=== PATIENT | female | born 1995 | race Caucasian/White ===

== ENCOUNTER 2018-05-12 00:05 | Emergency (ER) | payer SELFPAY ==
[2018-05-12 01:13] LABS: Urine Blood 3+ (NEG); Urine Glucose NEGATIVE (NEG); Urine Protein 1+ (NEG); Urine Specific Gravity 1.015 (1.005-1.030); Urine pH 7.5 (5.0-7.0)
[2018-05-12 01:23] LABS: Urine Bacteria <20 /HPF (<20); Urine Culture Reflex Order NOT NEEDED; Urine RBC >50 /HPF (NONE SEEN)
[2018-05-12] MEDS ORDERED: KETOROLAC 30 MG/ML INJ ONE (02:24)
--- NOTE | 2018-05-12 03:27 | EDPHYS ---
Physician Documentation [facility] Name: Francy Macdonald Age: 22 yrs Sex: Female : 1995 Arrival Date: 05/12/2018 Time: 00:08 Bed 20 Private MD: ED Physician Jose Cardenas HPI: 05/12 00:52 This 22 yrs old Female presents to ER via Ambulatory with complaints of snw Abdominal Pain, Back Pain. 00:52 The patient presents with abdominal distention that is diffuse. Onset: The snw symptoms/episode began/occurred suddenly. The symptoms do not radiate. Associated signs and symptoms: Pertinent positives: hematuria. The symptoms are described as constant, crampy. Severity of pain: At its worst the pain was moderate. The patient has not experienced similar symptoms in the past. It is unknown whether or not the patient has recently seen a physician. 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 - Social history:: Smoking status: Patient uses tobacco products, smokes one-half pack cigarettes per day, Patient uses street drugs, marijuana. - Ebola Screening: : Patient negative for fever greater than or equal to 101.5 degrees Fahrenheit, and additional compatible Ebola Virus Disease symptoms Patient denies exposure to infectious person Patient denies travel to an Ebola-affected area in the 21 days before illness onset. ROS: 00:54 Constitutional: Negative for fever, chills, and weight loss, Eyes: Negative for injury, snw pain, redness, and discharge, ENT: Negative for injury, pain, and discharge, Neck: Negative for injury, pain, and swelling, Cardiovascular: Negative for chest pain, palpitations, and edema, Respiratory: Negative for shortness of breath, cough, wheezing, and pleuritic chest pain, Abdomen/GI: Negative for abdominal pain, nausea, vomiting, diarrhea, and constipation, MS/Extremity: Negative for injury and deformity, Skin: Negative for injury, rash, and discoloration, Neuro: Negative for headache, weakness, numbness, tingling, and seizure. 00:54 Back: Positive for flank pain, on the left. 00:54 : Positive for hematuria. Exam: 00:50 Constitutional: This is a well developed, well nourished patient who is awake, alert, snw and in no acute distress. Head/Face: Normocephalic, atraumatic. Eyes: Pupils equal round and reactive to light, extra-ocular motions intact. Lids and lashes normal. Conjunctiva and sclera are non-icteric and not injected. Cornea within normal limits. Periorbital areas with no swelling, redness, or edema. ENT: Nares patent. No nasal discharge, no septal abnormalities noted. Tympanic membranes are normal and external auditory canals are clear. Oropharynx with no redness, swelling, or masses, exudates, or evidence of obstruction, uvula midline. Mucous membranes moist. Neck: Trachea midline, no thyromegaly or masses palpated, and no cervical lymphadenopathy. Supple, full range of motion without nuchal rigidity, or vertebral point tenderness. No Meningismus. Chest/axilla: Normal chest wall appearance and motion. Nontender with no deformity. No lesions are appreciated. Cardiovascular: Regular rate and rhythm with a normal S1 and S2. No gallops, murmurs, or rubs. Normal PMI, no JVD. No pulse deficits. Respiratory: Lungs have equal breath sounds bilaterally, clear to auscultation and percussion. No rales, rhonchi or wheezes noted. No increased work of breathing, no retractions or nasal flaring. Abdomen/GI: Soft, non-tender, with normal bowel sounds. No distension or tympany. No guarding or rebound. No evidence of tenderness throughout. Back: No spinal tenderness. No costovertebral tenderness. Full range of motion. Skin: Warm, dry with normal turgor. Normal color with no rashes, no lesions, and no evidence of cellulitis. MS/ Extremity: Pulses equal, no cyanosis. Neurovascular intact. Full, normal range of motion. Neuro: Awake and alert, GCS 15, oriented to person, place, time, and situation. Cranial nerves II-XII grossly intact. Motor strength 5/5 in all extremities. Sensory grossly intact. Cerebellar exam normal. Normal gait. Vital Signs: 00:19 Weight 72.57 kg; rv 00:24 BP 131 / 69; Pulse 79; Resp 19 S; Temp 98.4(O); Pulse Ox 100% on R/A; cc3 01:00 BP 132 / 82; Pulse 74; Resp 17 S; Pulse Ox 99% on R/A; cc3 02:15 BP 122 / 78; Pulse 77; Resp 18 S; Pulse Ox 98% on R/A; cc3 03:30 BP 124 / 77; Pulse 75; Resp 17 S; Pulse Ox 98% on R/A; cc3 MDM: 00:20 Patient medically screened. snw 03:24 Data reviewed: vital signs, nurses notes. Data interpreted: Pulse oximetry: on room air snw is 98 %. Interpretation: normal. Counseling: I had a detailed discussion with the patient and/or guardian regarding: the historical points, exam findings, and any diagnostic results supporting the discharge/admit diagnosis, lab results, radiology results, the need for outpatient follow up, to return to the emergency department if symptoms worsen or persist or if there are any questions or concerns that arise at home. Special discussion: Based on the history and exam findings, there is no indication for further emergent testing or inpatient evaluation. I discussed with the patient/guardian the need to see the primary care provider for further evaluation of the symptoms. I discussed with the patient/guardian the need to see the urologist for further evaluation of the symptoms. 05/12 00:21 Order name: Urine Culture [facility] 05/12 00:21 Order name: Urine Microscopic Only [facility] 05/12 01:05 Order name: Urine Dipstick--Ancillary (enter results) 05/12 01:05 Order name: Urine --Ancillary (enter results) 05/12 01:13 Order name: Urine --Ancillary; Complete Time: [facility] 05/12 01:13 Order name: Urine Dipstick-Ancillary; Complete Time: [facility] 05/12 00:21 Order name: Urine Test (obtain specimen); Complete Time: : [facility] 05/12 00:21 Order name: Urine Dipstick-Ancillary (obtain specimen); Complete Time: 01: [facility] 05/12 01:07 Order name: CT Stone Protocol [facility] 05/12 01:23 Order name: Urine Microscopic Only; Complete Time: EDMS Administered Medications: 02:15 Drug: TORadol 60 mg Route: IM; Site: left gluteus; cc3 03:01 Follow up: Response: No adverse reaction; Pain is decreased cc3 Disposition: 06:40 Co-signature as Attending Physician, Jose Cardenas MD. rn Disposition: 05/12/18 03:27 Discharged to Home. Impression: Nonobstructing renal pelvis calcification, Hematuria. - Condition is Stable. - Discharge Instructions: Hematuria, Adult, Kidney Stones, Renal Colic, Dietary Guidelines to Help Prevent Kidney Stones, Rehydration, Adult. - Prescriptions for Diclofenac Sodium 75 mg Oral Tablet Sustained Release - take 1 tablet by ORAL route 2 times per day; 30 tablet. - Work release form, Medication Reconciliation Form, Thank You Letter, Antibiotic Education, Prescription Opioid Use form. - Follow up: Barbara Sepulveda MD; When: 2 - 3 days; Reason: Recheck today's complaints, Continuance of care. Follow up: Private Physician; When: 2 - 3 days; Reason: Recheck today's complaints, Continuance of care, Re-evaluation by your physician. Signatures: Dispatcher [employer] EDMS Erendira Berry, ANCHORER-C ANCHORER-Csnw Jose Cardenas MD MD rn Vicente, Ronaldo, RN RN rv Cordel, Charlene cc3 Corrections: (The following items were deleted from the chart) 03:45 03:27 05/12/2018 03:27 Discharged to Home. Impression: Nonobstructing renal pelvis cc3 calcification; Hematuria. Condition is Stable. Forms are Medication Reconciliation Form, Thank You Letter, Antibiotic Education, Prescription Opioid Use. Follow up: Barbara Sepulveda; When: 2 - 3 days; Reason: Recheck today's complaints, Continuance of care. Follow up: Private Physician; When: 2 - 3 days; Reason: Recheck today's complaints, Continuance of care, Re-evaluation by your physician. snw
--- NOTE | 2018-05-12 03:27 | ER ---
Nurse's Notes [facility] Name: Francy Macdonald Age: 22 yrs Sex: Female : 1995 Arrival Date: 05/12/2018 Time: 00:08 Bed 20 Private MD: Diagnosis: Nonobstructing renal pelvis calcification;Hematuria Presentation: 05/12 00:17 Presenting complaint: Patient states: WOKE UP YESTERDAY IN EXCRUCIATING PAIN IN LOWER rv ABDOMEN. NOTED BLOODY URINE. WENT BACK TO BED. DID NOT GET BETTER. Transition of care: patient was not received from another setting of care. Onset of symptoms was May 11, 2018 at 05:00. Risk Assessment: Do you want to hurt yourself or someone else? Patient reports no desire to harm self or others. Initial Sepsis Screen: Does the patient meet any 2 criteria? No. Patient's initial sepsis screen is negative. Does the patient have a suspected source of infection? No. Patient's initial sepsis screen is negative. Care prior to arrival: None. 00:17 Method Of Arrival: Ambulatory rv 00:17 Acuity: FRANCIS 3 rv Triage Assessment: 00:19 General: Appears in no apparent distress. comfortable, Behavior is calm, cooperative. rv Pain: Complains of pain in abdomen Pain currently is 5 out of 10 on a pain scale. EENT: No signs and/or symptoms were reported regarding the EENT system. Neuro: Level of Consciousness is awake, alert, obeys commands, Oriented to person, place, time, situation. Cardiovascular: Capillary refill < 3 seconds. Respiratory: Airway is patent. GI: Abdomen is round. : No signs and/or symptoms were reported regarding the genitourinary system. Derm: Skin is intact. Musculoskeletal: No signs and/or symptoms reported regarding the musculoskeletal system. 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 - Social history:: Smoking status: Patient uses tobacco products, smokes one-half pack cigarettes per day, Patient uses street drugs, marijuana. - Ebola Screening: : Patient negative for fever greater than or equal to 101.5 degrees Fahrenheit, and additional compatible Ebola Virus Disease symptoms Patient denies exposure to infectious person Patient denies travel to an Ebola-affected area in the 21 days before illness onset. Screenin:20 Abuse screen: Denies threats or abuse. Denies injuries from another. Nutritional rv screening: No deficits noted. Tuberculosis screening: No symptoms or risk factors identified. Fall Risk None identified. Assessment: 00:20 GI: Bowel sounds present X 4 quads. Abd is soft and non tender X 4 quads. rv 01:18 Reassessment: Patient appears in no apparent distress at this time. Patient and/or cc3 family updated on plan of care and expected duration. Pain level reassessed. Patient is alert, oriented x 3, equal unlabored respirations, skin warm/dry/pink. 02:15 Reassessment: Patient appears in no apparent distress at this time. Patient and/or cc3 family updated on plan of care and expected duration. Pain level reassessed. Patient is alert, oriented x 3, equal unlabored respirations, skin warm/dry/pink. 03:40 Reassessment: Patient appears in no apparent distress at this time. Patient and/or cc3 family updated on plan of care and expected duration. Pain level reassessed. Patient is alert, oriented x 3, equal unlabored respirations, skin warm/dry/pink. NATASHA Krishna discharged the patient home with prescription given. No IV cannula in situ. Patient left ER vitally stable and ambulatory. Vital Signs: 00:19 Weight 72.57 kg; rv 00:24 BP 131 / 69; Pulse 79; Resp 19 S; Temp 98.4(O); Pulse Ox 100% on R/A; cc3 01:00 BP 132 / 82; Pulse 74; Resp 17 S; Pulse Ox 99% on R/A; cc3 02:15 BP 122 / 78; Pulse 77; Resp 18 S; Pulse Ox 98% on R/A; cc3 03:30 BP 124 / 77; Pulse 75; Resp 17 S; Pulse Ox 98% on R/A; cc3 ED Course: 00:08 Patient arrived in ED. ds1 00:18 Triage completed. rv 00:20 Erendira Berry FNP-C [facility]. snw 00:20 Jose Cardenas MD is Attending Physician. snw 00:20 Patient has correct armband on for positive identification. Placed in gown. Bed in low rv position. Call light in reach. Side rails up X 1. Adult w/ patient. Pulse ox on. NIBP on. 00:20 Patient placed in an exam room, on a stretcher, on pulse oximetry, Patient notified of rv wait time. 00:21 Mone Carrillo is Primary Nurse. cc3 02:11 Patient moved to PA via wheelchair. kw1 02:11 CT completed. Patient tolerated procedure well. Patient moved back from PA. kw1 03:25 Barbara Sepulveda MD is Referral Physician. snw 03:40 No provider procedures requiring assistance completed. Patient did not have IV access cc3 during this emergency room visit. 10:25 CT Stone Protocol In Process Unspecified. EDMS Administered Medications: 02:15 Drug: TORadol 60 mg Route: IM; Site: left gluteus; cc3 03:01 Follow up: Response: No adverse reaction; Pain is decreased cc3 Outcome: 03:27 Discharge ordered by . snw 03:40 Discharged to home ambulatory, with friend. cc3 03:40 Condition: stable 03:40 Discharge instructions given to patient, Instructed on discharge instructions, follow up and referral plans. medication usage, Demonstrated understanding of instructions, follow-up care, medications, Prescriptions given X 1. 03:45 Patient left the ED. cc3 Signatures: Dispatcher [employer] EDMS Erendira Berry, GRAVITY PROSPECTING SUPERVISOR-C GRAVITY PROSPECTING SUPERVISOR-Csnw Elizabeth Lala ds1 Chiara Santiago kw1 Timothy Chin, SHANTI RN Mone Carrillo cc3
--- NOTE | 2018-05-13 11:18 | RAD REPORT ---
EXAM DESCRIPTION: CT - Stone Protocol - 05/12/2018 3:25 am CLINICAL HISTORY: 22-year-old female with hematuria TECHNIQUE: Axial CT imaging of the abdomen and pelvis was performed. Sagittal and coronal reconstr ucted images were then performed. The CT study is performed according to ALARA (as low as reasonably achievable) or ALARA/IMAGE GENTLY, with automatic adjustment of mA and/or kV according to patient edelmira ruiz. Performed on: 05/12/2018 at 2:02 AM COMPARISON: None. FINDINGS: Lung bases: The lung bases are clear. Liver: The liver is normal in size and configuration. No focal hepatic abnormalities are appreciated on this unenhanced scan. Liver attenuation is within normal limits. Spleen: The spleen is normal is size, configuration and attenuation. No focal splenic abnormalities a re appreciated on this unenhanced scan. Gallbladder and bile duct: The gallbladder is well distended and unremarkable. There is no biliary ductal dilatation. Pancreas: The pancreas is grossly normal in size and configuration. Adrenal Glands: The adrenal glands are normal in size and configuration. Kidneys: The kidneys are normal in size and configuration. There is no evidence of hydronephrosis. Th ere is a large calcification in the left renal pelvis without dilatation of the renal collecting syst em. The calcification measures approximately 1.2 x 0.6 cm in cross-sectional diameter by 1.0 cm in le ngth. There is a punctate nonobstructing calcification in the upper pole of the right kidney. And a p unctate calcification in the lower pole of the left kidney. No additional focal renal abnormalities a re identified on this unenhanced scan. Stomach: The stomach is grossly normal. There is no definite hiatal hernia. Bowel: The bowel gas pattern is non specific and non obstructive. Appendix: The appendix is normal. Free air: There is no evidence of free air. Free fluid: There is no evidence of free fluid. Vasculature: The aorta is normal in caliber and contour. The inferior vena cava is grossly unremarkab le. Lymphadenopathy: No pathologic lymphadenopathy is identified. Bladder: The bladder is well distended and smooth in contour. Reproductive: The uterus is grossly within normal limits. Bones: No acute osseous abnormalities are identified. Soft tissues: No focal soft tissue abnormalities are identified. IMPRESSION: 1. Bilateral nonobstructing nephrolithiasis. There is a large calcification in the left renal pelvis measuring approximately 1.2 x 0.6 x 1.0 cm without associated hydronephrosis. 2. Otherwise, unremarkable unenhanced CT scan of the abdomen and pelvis. Electronically signed by: Saundra Courtnye DO 05/12/2018 3:04 AM BOARD FILLER Due to temporary technical issues with the PACS/Fluency reporting system, reports are being signed b y the in house radiologist as a courtesy to ensure prompt reporting. The interpreting radiologist is fully responsible for the content of the report.
== END 2018-05-12 03:45 | disposition home or self-care (01) ==
LOC: ER 00:05
DX: N20.0 Calculus of kidney (principal); F17.210 Nicotine dependence, cigarettes, uncomplicated
CPT/HCPCS: 74176; 76377; 81003; 81015; 81025; 87086; 87088; 96372; 99284

== ENCOUNTER 2018-08-28 23:43 | Emergency (ER) | payer SELFPAY ==
[2018-08-29 00:31] LABS: Urine Culture Reflex Order NOT NEEDED
[2018-08-29 00:32] LABS: Urine Bacteria <20 /HPF (<20); Urine RBC >50 /HPF (NONE SEEN)
[2018-08-29] MEDS ORDERED: FENTANYL CITR 100 MCG/2 ML ONE (00:32)
[2018-08-29] MEDS ORDERED: NA CHLORIDE 0.9% 1,000 ML ONE (00:33)
[2018-08-29 00:39] LABS: Absolute Lymphocytes (CBC) 4.3 K/uL (0.7-4.9); Absolute Monocytes 0.7 K/uL (0.1-1.3); Basophils % 0.6 % (0-1.3); Eosinophils % 0.6 % (0-4.4); Hematocrit 40.4 % (36.0-45.0); Lymphocytes % 35.3 % (15.3-44.8); MPV 8.7 fL (7.6-11.3); Monocytes % 5.6 % (3.3-12.3); RBC Red Blood Cell Count 4.65 M/uL (3.86-4.86)
[2018-08-29 00:50] LABS: BUN Blood Urea Nitrogen 11 mg/dL (7-18); Bicarbonate 26 mmol/L (21-32); Glucose Level 85 mg/dL (74-106); Potassium 3.5 mmol/L (3.5-5.1); Sodium Level 140 mmol/L (136-145)
[2018-08-29 00:53] LABS: Urine Blood 3+ (NEG); Urine Glucose NEGATIVE (NEG); Urine Protein 1+ (NEG)
--- NOTE | 2018-08-29 02:57 | ER ---
Nurse's Notes [facility] Name: Francy Macdonald Age: 22 yrs Sex: Female : 1995 Arrival Date: 08/28/2018 Time: 23:46 Bed 16 Private MD: Diagnosis: Unspecified renal colic;Hydronephrosis with renal and ureteral calculous obstruction Presentation: 08/28 23:45 Presenting complaint: Patient states: that she has a hx of a left sided kidney stone fc that she was unable to pass and unable to follow up with a specialist for. Today the pain got worse, she has urinary frequency, burning with urination and blood in the urine. Transition of care: patient was not received from another setting of care. Onset of symptoms was August 28, 2018. Risk Assessment: Do you want to hurt yourself or someone else? Patient reports no desire to harm self or others. Initial Sepsis Screen: Does the patient meet any 2 criteria? No. Patient's initial sepsis screen is negative. Does the patient have a suspected source of infection? No. Patient's initial sepsis screen is negative. Care prior to arrival: None. 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 - Social history:: Smoking status: Patient uses tobacco products, Vap's, Patient uses alcohol, occasionally. Patient/guardian denies using street drugs. - Ebola Screening: : Patient negative for fever greater than or equal to 101.5 degrees Fahrenheit, and additional compatible Ebola Virus Disease symptoms Patient denies exposure to infectious person Patient denies travel to an Ebola-affected area in the 21 days before illness onset. Screenin:45 Abuse screen: Denies threats or abuse. Nutritional screening: No deficits noted. fc Tuberculosis screening: No symptoms or risk factors identified. Fall Risk None identified. Assessment: 08/29 00:10 General: Appears in no apparent distress. uncomfortable, Behavior is cooperative, jb4 appropriate for age, anxious. Pain: Complains of pain in left low back Pain radiates to left lower quadrant Pain currently is 10 out of 10 on a pain scale. Quality of pain is described as throbbing. Neuro: Level of Consciousness is awake, alert, obeys commands, Oriented to person, place, time, situation. Cardiovascular: Patient's skin is warm and dry. Respiratory: Airway is patent Respiratory effort is even, unlabored, Respiratory pattern is regular, symmetrical. GI: No signs and/or symptoms were reported involving the gastrointestinal system. : No signs and/or symptoms were reported regarding the genitourinary system. EENT: No signs and/or symptoms were reported regarding the EENT system. Derm: Skin is intact, Skin is pink, warm \T\ dry. Musculoskeletal: Circulation, motion, and sensation intact. 01:00 Reassessment: Patient appears in no apparent distress at this time. Patient and/or jb4 family updated on plan of care and expected duration. Pain level reassessed. Patient is alert, oriented x 3, equal unlabored respirations, skin warm/dry/pink. Patient states symptoms have improved. 02:00 Reassessment: Patient appears in no apparent distress at this time. Patient and/or jb4 family updated on plan of care and expected duration. Pain level reassessed. Patient is alert, oriented x 3, equal unlabored respirations, skin warm/dry/pink. Patient states symptoms have improved. 03:10 Reassessment: Patient appears in no apparent distress at this time. Patient is alert, jb4 oriented x 3, equal unlabored respirations, skin warm/dry/pink. PT discharged to [facility] to wait for her ride, ambulated out of ED with steady gate. Vital Signs: 08/28 23:45 BP 138 / 80; Pulse 85; Resp 18; Temp 97.8(O); Pulse Ox 100% on R/A; Weight 70.31 kg fc (R); Height 5 ft. 4 in. (162.56 cm) (R); Pain 12/26; 08/29 00:30 BP 124 / 80; Pulse 74; Resp 16; Pulse Ox 100% on R/A; jb4 02:00 BP 114 / 60; Pulse 72; Resp 16; Pulse Ox 100% on R/A; jb4 02:30 BP 112 / 63; Pulse 58; Resp 16; Pulse Ox 100% on R/A; jb4 08/28 23:45 Body Mass Index 26.61 (70.31 kg, 162.56 cm) ED Course: 08/28 23:45 Arm band placed on Patient placed in an exam room, on a stretcher. fc 23:45 Patient has correct armband on for positive identification. Placed in gown. Bed in low fc position. Call light in reach. Side rails up X 1. Pulse ox on. NIBP on. 23:45 No provider procedures requiring assistance completed. 23:46 Patient arrived in ED. am2 23:49 Erendira Berry FNP-C is PHCP. snw 23:49 Jose Cardenas MD is Attending Physician. snw 23:57 Triage completed. 08/29 00:05 Jasiel Morrison, SHANTI is Primary Nurse. jb4 00:24 Initial lab(s) drawn, by ms, sent to lab. Inserted saline lock: 20 gauge in left lt1 antecubital area, using aseptic technique. 00:24 Urine Culture Sent. lt1 00:24 Urine Microscopic Only Sent. lt1 00:24 CBC with Diff Sent. lt1 00:24 Chem [address] lt1 01:41 CT completed. Patient tolerated procedure well. Patient moved to CT via wheelchair. vm2 Patient moved back from CT. 01:49 CT Stone Protocol In Process Unspecified. EDMS 03:10 IV discontinued, intact, bleeding controlled, No redness/swelling at site. jb4 Administered Medications: 00:25 Drug: NS 0.9% 1000 ml Route: IV; Rate: 1 bolus; Site: left antecubital; jb4 01:25 Follow up: Response: No adverse reaction; IV Status: Completed infusion; IV Intake: jb4 1000ml 00:26 Drug: fentaNYL (PF) 25 mcg Route: IVP; Site: left antecubital; jb4 00:56 Follow up: Response: No adverse reaction; Pain is decreased jb4 Intake: 01:25 IV: 1000ml; Total: 1000ml. jb4 Outcome: 02:56 Discharge ordered by . snw 03:10 Discharged to home ambulatory, with friend. jb4 03:10 Condition: stable 03:10 Discharge instructions given to patient, Instructed on discharge instructions, follow up and referral plans. medication usage, Demonstrated understanding of instructions, follow-up care, medications, Prescriptions given X 1. 03:18 Patient left the ED. jb4 Signatures: Dispatcher [employer] EDErendira Resendiz FNP-C VALLEZ FILTER OPERATOR-Daphne Franklin, RN RN Jasiel Grey RN RN jb4 Rosalva Almonte am2 Mary Mena 2 Asya Monroe lt1 Corrections: (The following items were deleted from the chart) 03:21 03:19 Reassessment: Patient appears in no apparent distress at this time. Patient jb4 and/or family updated on plan of care and expected duration. Pain level reassessed. Patient is alert, oriented x 3, equal unlabored respirations, skin warm/dry/pink. jb4
--- NOTE | 2018-08-29 02:57 | EDPHYS ---
Physician Documentation [facility] Name: Francy Macdonald Age: 22 yrs Sex: Female : 1995 Arrival Date: 08/28/2018 Time: 23:46 Bed 16 Private MD: ED Physician Jose Cardenas HPI: 08/29 00:32 This 22 yrs old Female presents to ER via Ambulatory with complaints of Flank snw Pain. 00:32 The patient complains of pain in the left mid back. The pain does not radiate. Onset: snw The symptoms/episode began/occurred suddenly, and became persistent. Associated signs and symptoms: Pertinent positives: hematuria, nausea. Severity of pain: At its worst the pain was moderate. The patient has experienced similar episodes in the past. The patient has not recently seen a physician. 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 - Social history:: Smoking status: Patient uses tobacco products, Vap's, Patient uses alcohol, occasionally. Patient/guardian denies using street drugs. - Ebola Screening: : Patient negative for fever greater than or equal to 101.5 degrees Fahrenheit, and additional compatible Ebola Virus Disease symptoms Patient denies exposure to infectious person Patient denies travel to an Ebola-affected area in the 21 days before illness onset. ROS: 08/29 00:31 Eyes: Negative for injury, pain, redness, and discharge, ENT: Negative for injury, snw pain, and discharge, Neck: Negative for injury, pain, and swelling, Cardiovascular: Negative for chest pain, palpitations, and edema, Respiratory: Negative for shortness of breath, cough, wheezing, and pleuritic chest pain, Abdomen/GI: Negative for abdominal pain, nausea, vomiting, diarrhea, and constipation, Back: Negative for injury. + pain to left flank : Negative for injury, bleeding, discharge, and swelling, MS/Extremity: Negative for injury and deformity, Skin: Negative for injury, rash, and discoloration, Neuro: Negative for headache, weakness, numbness, tingling, and seizure. Constitutional: Positive for malaise. Exam: 00:31 Constitutional: This is a well developed, well nourished patient who is awake, alert, snw and in no acute distress. Head/Face: Normocephalic, atraumatic. Eyes: Pupils equal round and reactive to light, extra-ocular motions intact. Lids and lashes normal. Conjunctiva and sclera are non-icteric and not injected. Cornea within normal limits. Periorbital areas with no swelling, redness, or edema. ENT: Nares patent. No nasal discharge, no septal abnormalities noted. Tympanic membranes are normal and external auditory canals are clear. Oropharynx with no redness, swelling, or masses, exudates, or evidence of obstruction, uvula midline. Mucous membranes moist. Neck: Trachea midline, no thyromegaly or masses palpated, and no cervical lymphadenopathy. Supple, full range of motion without nuchal rigidity, or vertebral point tenderness. No Meningismus. Chest/axilla: Normal chest wall appearance and motion. Nontender with no deformity. No lesions are appreciated. Cardiovascular: Regular rate and rhythm with a normal S1 and S2. No gallops, murmurs, or rubs. Normal PMI, no JVD. No pulse deficits. Respiratory: Lungs have equal breath sounds bilaterally, clear to auscultation and percussion. No rales, rhonchi or wheezes noted. No increased work of breathing, no retractions or nasal flaring. Abdomen/GI: Soft, non-tender, with normal bowel sounds. No distension or tympany. No guarding or rebound. No evidence of tenderness throughout. Skin: Warm, dry with normal turgor. Normal color with no rashes, no lesions, and no evidence of cellulitis. MS/ Extremity: Pulses equal, no cyanosis. Neurovascular intact. Full, normal range of motion. Neuro: Awake and alert, GCS 15, oriented to person, place, time, and situation. Cranial nerves II-XII grossly intact. Motor strength 5/5 in all extremities. Sensory grossly intact. Cerebellar exam normal. Normal gait. Psych: Awake, alert, with orientation to person, place and time. Behavior, mood, and affect are within normal limits. 00:31 Back: pain, that is moderate, CVA tenderness, that is mild, is noted on the left. Vital Signs: 08/28 23:45 BP 138 / 80; Pulse 85; Resp 18; Temp 97.8(O); Pulse Ox 100% on R/A; Weight 70.31 kg fc (R); Height 5 ft. 4 in. (162.56 cm) (R); Pain 10; 08/29 00:30 BP 124 / 80; Pulse 74; Resp 16; Pulse Ox 100% on R/A; jb4 02:00 BP 114 / 60; Pulse 72; Resp 16; Pulse Ox 100% on R/A; jb4 02:30 BP 112 / 63; Pulse 58; Resp 16; Pulse Ox 100% on R/A; jb4 08/28 23:45 Body Mass Index 26.61 (70.31 kg, 162.56 cm) fc MDM: 00:03 Patient medically screened. snw 02:58 Data reviewed: vital signs, nurses notes. Data interpreted: Pulse oximetry: on room air snw is 100 %. Interpretation: normal. Counseling: I had a detailed discussion with the patient and/or guardian regarding: the historical points, exam findings, and any diagnostic results supporting the discharge/admit diagnosis, lab results, radiology results, the need for outpatient follow up, for definitive care, to return to the emergency department if symptoms worsen or persist or if there are any questions or concerns that arise at home. Response to treatment: the patient's symptoms have markedly improved after treatment. Special discussion: Based on the patient's Hx, exam, and Dx evaluation, there is no indication for emergent surgery or inpatient Tx. It is understood by the patient/guardian that if the Sx's persist or worsen they need to return immediately for re-evaluation. Based on the history and exam findings, there is no indication for further emergent testing or inpatient evaluation. I discussed with the patient/guardian the need to see the urologist for further evaluation of the symptoms. 08/28 23:50 Order name: Urine Culture snw 08/28 23:50 Order name: Urine Microscopic Only; Complete Time: 00:35 snw 08/29 00:12 Order name: CBC with Diff; Complete Time: 00:41 snw 08/29 00:12 Order name: Chem 7; Complete Time: 00:53 snw 08/29 00:32 Order name: Urine Dipstick--Ancillary (enter results); Complete Time: 00:53 08/29 00:32 Order name: Urine --Ancillary (enter results); Complete Time: 00:53 08/28 23:50 Order name: Urine Test (obtain specimen); Complete Time: 00:10 sn 08/28 23:50 Order name: Urine Dipstick-Ancillary (obtain specimen); Complete Time: 00:10 [facility] 08/29 00:54 Order name: CT Stone Protocol snw Administered Medications: 00:25 Drug: NS 0.9% 1000 ml Route: IV; Rate: 1 bolus; Site: left antecubital; jb4 01:25 Follow up: Response: No adverse reaction; IV Status: Completed infusion; IV Intake: jb4 1000ml 00:26 Drug: fentaNYL (PF) 25 mcg Route: IVP; Site: left antecubital; jb4 00:56 Follow up: Response: No adverse reaction; Pain is decreased jb4 Disposition: 03:46 Co-signature as Attending Physician, Jose Cardenas MD. rn Disposition: 08/29/18 02:56 Discharged to Home. Impression: Unspecified renal colic, Hydronephrosis with renal and ureteral calculous obstruction. - Condition is Stable. - Discharge Instructions: Kidney Stones, Renal Colic, Hydronephrosis, Dietary Guidelines to Help Prevent Kidney Stones, Rehydration, Adult, Laser Therapy for Kidney Stones, Care After. - Prescriptions for Diclofenac Sodium 75 mg Oral Tablet Sustained Release - take 1 tablet by ORAL route 2 times per day; 30 tablet. - Work release form, Medication Reconciliation Form, Thank You Letter, Antibiotic Education, Prescription Opioid Use form. - Follow up: Emergency Department; When: As needed; Reason: Worsening of condition. Follow up: Private Physician; When: 2 - 3 days; Reason: Recheck today's complaints, Continuance of care, Re-evaluation by your physician. - Notes: Important to f/u with . Hydronephrosis has worsened since April,. Signatures: Dispatcher [employer] EDMS Erendira Berry, ALEYDA-C SPINDLE FRAME CARVER-Csnw Daphne Dexter RN RN fc Nieto, Roman, MD MD rn Bryson, James, RN RN jb4 Corrections: (The following items were deleted from the chart) 03:18 02:56 08/29/2018 02:56 Discharged to Home. Impression: Unspecified renal colic; jb4 Hydronephrosis with renal and ureteral calculous obstruction. Condition is Stable. Discharge Instructions: Kidney Stones, Renal Colic, Hydronephrosis, Dietary Guidelines to Help Prevent Kidney Stones, Rehydration, Adult, Laser Therapy for Kidney Stones, Care After. Prescriptions for Diclofenac Sodium 75 mg Oral Tablet Sustained Release - take 1 tablet by ORAL route 2 times per day; 30 tablet. and Forms are Medication Reconciliation Form, Thank You Letter, Antibiotic Education, Prescription Opioid Use. Follow up: Emergency Department; When: As needed; Reason: Worsening of condition. Follow up: Private Physician; When: 2 - 3 days; Reason: Recheck today's complaints, Continuance of care, Re-evaluation by your physician. xochitl
--- NOTE | 2018-08-29 10:17 | RAD REPORT ---
EXAM DESCRIPTION: CT - Stone Protocol - 08/29/2018 6:52 am CLINICAL HISTORY: The patient is 22 years old and is Female; FLANK PAIN TECHNIQUE: Axial computed tomography images of the abdomen and pelvis without intravenous contrast. Sagittal and coronal reformatted images were created and reviewed. This CT exam was performed usi ng one or more of the following dose reduction techniques: automated exposure control, adjustment o f the mA and/or kV according to patient size, and/or use of iterative reconstruction technique. COMPARISON: CT abdomen and pelvis without contrast dated May 12, 2018. FINDINGS: LUNG BASES: Unremarkable. No mass. No consolidation. ABDOMEN: LIVER: Unremarkable. GALLBLADDER AND BILE DUCTS: Unremarkable. No calcified stones. No ductal dilation. PANCREAS: Unremarkable. No ductal dilation. SPLEEN: Unremarkable. No splenomegaly. ADRENALS: Unremarkable. No mass. KIDNEYS AND URETERS: 0.8 x 0.6 cm calcified stone at the left UPJ. Moderate hydronephrosis, worsen ed from prior exam. Continued evidence of prominence of the left ureter with periureteral stranding. 0.3 mm right UVJ calculus with moderate hydronephrosis and hydroureter. STOMACH AND BOWEL: Minimal diverticulosis of the descending colon. No obstruction. No mucosal thickening. PELVIS: APPENDIX: The appendix is seen and is within normal limits. BLADDER: Unremarkable. No stones. REPRODUCTIVE: Suggestion of bilateral ovarian cysts measuring 2.5 cm on the right and 2 cm on the left. ABDOMEN and PELVIS: INTRAPERITONEAL SPACE: Unremarkable. No free air. No significant fluid collection. BONES/JOINTS: No acute fracture. No dislocation. SOFT TISSUES: Unremarkable. VASCULATURE: Unremarkable. No abdominal aortic aneurysm. LYMPH NODES: Unremarkable. No enlarged lymph nodes. IMPRESSION: 1. 0.8 cm left UPJ stone with moderate hydronephrosis, worsened from prior exam. 2. 0.3 cm right UVJ stone with mild hydronephrosis. 3. Minimal descending colon diverticulosis without CT evidence of acute diverticulitis. 4. Small bilateral ovarian cysts. No follow-up imaging is recommended.Reference: US recommendatio ns based on Radiology 2010 Sep;256(3):943-54; CT/MR recommendations based on J Am Marleen Radiol 2013;10 :675-681. Electronically signed by: Maurizio Chan DO 08/29/2018 2:03 AM CDT Due to temporary technical issues with the PACS/Fluency reporting system, reports are being signed by the in house radiologist as a courtesy to ensure prompt reporting. The interpreting radiologist is f ully responsible for the content of the report.
== END 2018-08-29 03:18 | disposition home or self-care (01) ==
LOC: ER 23:43
DX: N13.2 Hydronephrosis with renal and ureteral calculous obstruction (principal); Z72.0 Tobacco use
CPT/HCPCS: 36415; 74176; 76377; 80048; 81003; 81015; 81025; 85025; 87086; 87088; 96361; 96374; 99284; J3010; J7030

== ENCOUNTER 2018-08-29 11:53 | Day surgery (SDC) | payer SELFPAY ==
[2018-08-29 12:33] LABS: Absolute Lymphocytes (CBC) 2.1 K/uL (0.7-4.9); Absolute Monocytes 0.6 K/uL (0.1-1.3); Absolute Neutrophil 11.2 K/uL (1.8-8.0); Basophils % 0.4 % (0-1.3); Eosinophils % 0.2 % (0-4.4); Hematocrit 40.7 % (36.0-45.0); Lymphocytes % 15.1 % (15.3-44.8); MPV 8.4 fL (7.6-11.3); Monocytes % 4.2 % (3.3-12.3); RBC Red Blood Cell Count 4.65 M/uL (3.86-4.86)
[2018-08-29 12:36] LABS: Protime INR 1.08
[2018-08-29 12:52] LABS: BUN Blood Urea Nitrogen 8 mg/dL (7-18); Bicarbonate 27 mmol/L (21-32); Glucose Level 97 mg/dL (74-106); Phosphorus 2.6 mg/dL (2.5-4.9); Potassium 3.9 mmol/L (3.5-5.1); Sodium Level 141 mmol/L (136-145); Uric Acid 5.7 mg/dL (2.6-6.0)
[2018-08-29 12:54] LABS: HCG, Quantitative < 1 mIU/mL (1-3)
--- NOTE | 2018-08-29 12:58 | RAD REPORT ---
EXAM DESCRIPTION: RAD - Chest Pa And Lat (2 Views) - 08/29/2018 12:53 pm CLINICAL HISTORY: pre op Chest pain. COMPARISON: <Comparisons> FINDINGS: The lungs are clear. The heart is normal in size. No displaced fractures. IMPRESSION: No acute or concerning finding suspected.
--- NOTE | 2018-08-29 13:01 | RAD REPORT ---
EXAM DESCRIPTION: RAD - Abdomen 1 View (KUB) - 08/29/2018 12:53 pm CLINICAL HISTORY: pre op Pain COMPARISON: Stone Protocol dated 08/29/2018; Stone Protocol dated 05/12/2018 FINDINGS: The bowel gas pattern is non-obstructive. No evidence of free air or pneumatosis. Large ro unded calcific density projects inferior to the left L2 transverse process, likely representing a sto ne in the left UPJ region.
[2018-08-29 13:14] LABS: Urine Appearance CLEAR; Urine Bilirubin NEGATIVE (NEG); Urine Blood 2+ (NEG); Urine Color YELLOW; Urine Glucose NEGATIVE (NEG); Urine Protein NEGATIVE (NEG); Urine Specific Gravity <=1.005 (1.005-1.030); Urine Urobilinogen 0.2 mg/dL (0.2-1.0)
[2018-08-29 13:22] LABS: Urine Bacteria 20-50 /HPF (<20); Urine Culture Reflex Order REFLEXED
[2018-08-29] MEDS: Ringers Lactate 1,000 ML IV ONE ×2 (13:30→13:43)
[2018-08-29] MEDS ORDERED: GENTAMICIN 80 MG/100 ML BAG 80 MG/100 ML BAG IV ONE (13:35)
[2018-08-29] MEDS ORDERED: PROPOFOL 200 MG/20 ML VIAL IV ONE (13:48)
[2018-08-29] MEDS ORDERED: FENTANYL CITR 100 MCG/2 ML ONE (13:48)
[2018-08-29] MEDS ORDERED: MIDAZOLAM HCL 2 MG/2 ML INJ ONE (13:49)
[2018-08-29] MEDS ORDERED: LIDOCAINE 1% MPF 5 ML VIAL ONE (13:49)
[2018-08-29] MEDS ORDERED: ONDANSETRON 4 MG/2 ML VIAL ONE (13:51)
--- NOTE | 2018-08-29 14:39 | RAD REPORT ---
EXAM DESCRIPTION: RAD - Urethrocystogrphy Retrograde - 08/29/2018 2:25 pm FINDINGS: Multiple KUB acquisitions obtained during fluoroscopic assisted placement of a left ureter al stent and the right stone retrieval. Images show stepwise placement of the left-sided stent. No mccollum spicious or unexpected finding. Fluoro time was 49 seconds. There were 17 images obtained.
[2018-08-29] MEDS: MORPHINE 4 MG/ML SYR ONE ×2 (15:00→15:05)
[2018-08-29] MEDS ORDERED: CODEINE 30MG/APAP 300MG TAB ONE (16:27)
[2018-08-29] MEDS ORDERED: OXYBUTYNIN CHLORIDE 5 MG TAB ONE (16:27)
--- NOTE | 2018-08-30 08:06 | EKG ---
Test Date: 2018-08-29 Test Time: 12:31:39 Barrel Rifler Hook: JUAN MANUEL MEASUREMENT RESULTS: Intervals: Rate: 75 [place]: 142 QRSD: 98 QT: 382 QTc: 426 [place]: P: 54 NJ: 142 QRS: 44 T: 53 INTERPRETIVE STATEMENTS: Normal sinus rhythm Normal ECG No previous ECG available for comparison Electronically Signed On 08-30-18 08:04:59 CDT by Stewart Lazcano
== END 2018-08-29 17:15 | disposition home or self-care (01) ==
LOC: OR 11:53
PROVIDERS: ATTEND Urology
PROC: 0T768DZ Dilation of Right Ureter with Intraluminal Device, Via Natural or Artificial Opening Endoscopic (ICD-10-PCS; 2018-08-29)
PROC: 0TC68ZZ Extirpation of Matter from Right Ureter, Via Natural or Artificial Opening Endoscopic (ICD-10-PCS; principal; 2018-08-29 14:00)
DX: N20.2 Calculus of kidney with calculus of ureter (principal); Q62.39 Other obstructive defects of renal pelvis and ureter
CPT/HCPCS: 36415; 51610; 71046; 74018; 74450; 80048; 81001; 82330; 82360; 84100; 84550; 84702; 85025; 85610; 85730; 88300; 93005; J1580; J2250; J2405; J2704; J3010

== ENCOUNTER 2018-09-03 10:39 | Day surgery (SDC) | payer SELFPAY ==
[2018-09-03 11:00] LABS: Specific Gravity 1.025 (1.005-1.030)
[2018-09-03] MEDS ORDERED: Ringers Lactate 1,000 ML IV ONE (11:05)
[2018-09-03] MEDS ORDERED: GENTAMICIN 80 MG/100 ML BAG 80 MG/100 ML BAG IV ONE (11:05)
[2018-09-03] MEDS ORDERED: PROPOFOL 200 MG/20 ML VIAL IV ONE (11:15)
[2018-09-03] MEDS ORDERED: LIDOCAINE 1% MPF 5 ML VIAL ONE (11:15)
[2018-09-03] MEDS ORDERED: FENTANYL CITR 100 MCG/2 ML ONE (11:15)
[2018-09-03] MEDS ORDERED: MIDAZOLAM HCL 2 MG/2 ML INJ ONE (11:15)
[2018-09-03] MEDS ORDERED: ONDANSETRON 4 MG/2 ML VIAL ONE ×2 (12:11→14:38)
[2018-09-03] MEDS ORDERED: DEXAMETHASONE 4 MG/ML VIAL ONE (12:11)
[2018-09-03] MEDS ORDERED: PROMETHAZINE 25 MG/ML VIAL ONE (12:51)
[2018-09-03] MEDS ORDERED: ONDANSETRON 4 MG/2 ML VIAL IV ONE (14:25)
[2018-09-03] MEDS ORDERED: HYDROCODONE/APAP 7.5/325 MG TAB PO ONE (14:35)
[2018-09-03] MEDS ORDERED: HYDROCODONE/APAP 7.5/325 MG TAB ONE (14:38)
== END 2018-09-03 15:08 | disposition home or self-care (01) ==
LOC: OR 10:39
PROVIDERS: ATTEND Urology
PROC: 0TFBXZZ Fragmentation in Bladder, External Approach (ICD-10-PCS; principal; 2018-09-03 12:30)
DX: N20.0 Calculus of kidney (principal); Q62.39 Other obstructive defects of renal pelvis and ureter
CPT/HCPCS: 50590; 81025; J1580; J2250; J2405; J2550; J2704; J3010

== ENCOUNTER 2018-09-04 20:46 | Emergency (ER) | payer SELFPAY ==
[2018-09-04 23:08] LABS: Urine Blood 3+ (NEG); Urine Glucose NEGATIVE (NEG); Urine Protein 2+ (NEG)
[2018-09-04] MEDS ORDERED: LIDOCAINE 1% MPF 2 ML AMPULE ONE (23:27)
--- NOTE | 2018-09-04 23:27 | ER ---
Nurse's Notes [facility] Name: Francy Macdonald Age: 22 yrs Sex: Female : 1995 Arrival Date: 09/04/2018 Time: 20:51 Bed 23 Private MD: Diagnosis: Urinary tract infection, site not specified Presentation: 09/04 20:54 Presenting complaint: Patient states: "I wanted to get checked to see if I was breaking aj out in a fever after I had lithotripsy yesterday. I can feel the heat off of me.". Care prior to arrival: None. 20:54 Method Of Arrival: Ambulatory aj 20:54 Acuity: FRANCIS 5 aj 21:52 Transition of care: patient was not received from another setting of care. Onset of mg2 symptoms was September 04, 2018. Risk Assessment: Do you want to hurt yourself or someone else? Patient reports no desire to harm self or others. Initial Sepsis Screen: Does the patient meet any 2 criteria? No. Patient's initial sepsis screen is negative. Does the patient have a suspected source of infection? No. Patient's initial sepsis screen is negative. Triage Assessment: 20:54 General: Appears in no apparent distress. comfortable, Behavior is calm, cooperative, aj appropriate for age. Pain: Denies pain. Neuro: Level of Consciousness is awake, alert, obeys commands, Oriented to person, place, time, situation, Appropriate for age. Respiratory: Airway is patent Trachea midline Respiratory effort is even, unlabored, Respiratory pattern is regular, symmetrical. Derm: Skin is intact, is healthy with good turgor, Skin is pink, warm \\T\\ dry. normal. 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 - Social history:: Smoking status: unknown. - Ebola Screening: : No symptoms or risks identified at this time. Screenin:51 Abuse screen: Denies threats or abuse. Denies injuries from another. Nutritional mg2 screening: No deficits noted. Tuberculosis screening: No symptoms or risk factors identified. Fall Risk None identified. Assessment: 23:17 General: Appears in no apparent distress. comfortable, Behavior is calm, cooperative. mg2 Pain: Denies pain. Neuro: Level of Consciousness is awake, alert, obeys commands, Oriented to person, place, time, situation. Cardiovascular: Capillary refill < 3 seconds Patient's skin is warm and dry. Respiratory: Airway is patent Respiratory effort is even, unlabored, Respiratory pattern is regular, symmetrical. GI: No deficits noted. : Urine is blood tinged. EENT: No signs and/or symptoms were reported regarding the EENT system. Derm: Skin is intact, is healthy with good turgor, Skin is pink, warm \\T\\ dry. normal. Musculoskeletal: Circulation, motion, and sensation intact. Capillary refill < 3 seconds. Vital Signs: 20:54 BP 140 / 77; Pulse 70; Resp 16; Temp 98.3(O); Pulse Ox 100% on R/A; Weight 70.31 kg; aj Height 5 ft. 4 in. (162.56 cm); 23:19 BP 115 / 67; Pulse 73; Resp 18; Temp 98.4; Pulse Ox 100% on R/A; Pain 0/10; mg2 20:54 Body Mass Index 26.61 (70.31 kg, 162.56 cm) aj ED Course: 20:51 Patient arrived in ED. es 20:54 Triage completed. aj 20:54 Arm band placed on right wrist. Patient placed in waiting room. aj 21:07 Elpidio Damon PA is PHCP. jmm 21:07 Loco Corbett MD is Attending Physician. jmm 21:38 Lakhwinder Olsen, RN is Primary Nurse. mg2 21:54 No provider procedures requiring assistance completed. Patient did not have IV access mg2 during this emergency room visit. 22:02 Chest Single View XRAY In Process Unspecified. EDMS 23:18 Patient has correct armband on for positive identification. mg2 23:24 Barbara Sepulveda MD is Referral Physician. [facility] Administered Medications: 23:17 Drug: Rocephin (cefTRIAXone) 1 grams Route: IM; Site: right gluteus; mg2 23:38 Follow up: Response: No adverse reaction mg2 Outcome: 23:24 Discharge ordered by . jmm 23:38 Discharged to home ambulatory. mg2 23:38 Condition: stable 23:38 Discharge instructions given to patient, Instructed on discharge instructions, follow up and referral plans. Demonstrated understanding of instructions, follow-up care. 23:43 Patient left the ED. lt1 Signatures: Dispatcher [employer] Rosalva Quevedo RN RN aj Mickail, Joel, PA PA jmm Salyer, Edna es Gardose, Michele, RN RN mg2 Tran, Leah lt1 Corrections: (The following items were deleted from the chart) 23:38 23:19 Pulse 73bpm; Resp 18bpm; Pulse Ox 100% RA; Temp 98.4F; Pain 0/10; mg2 mg2
--- NOTE | 2018-09-04 23:27 | EDPHYS ---
Physician Documentation [facility] Name: Francy Macdonald Age: 22 yrs Sex: Female : 1995 Arrival Date: 09/04/2018 Time: 20:51 Bed 23 Private MD: ED Physician Loco Corbett HPI: 09/04 21:09 This 22 yrs old Female presents to ER via Ambulatory with complaints of want jmm temp checked after surgery. 21:09 This is a 22 year old female with a history of kidney stones that presents to the ED [facility] with complaints of subjective fever. Patient states having lithotripsy earlier today and states that she felt flushed. Denies vomiting, denies dysuria, denies shortness of breath, denies abdominal pain. . 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 - Social history:: Smoking status: unknown. - Ebola Screening: : No symptoms or risks identified at this time. ROS: 21:09 Eyes: Negative for injury, pain, redness, and discharge, Cardiovascular: Negative for jmm chest pain, palpitations, and edema, Respiratory: Negative for shortness of breath, cough, wheezing, and pleuritic chest pain, Abdomen/GI: Negative for abdominal pain, nausea, vomiting, diarrhea, and constipation, Back: Negative for injury and pain. 21:09 Constitutional: Positive for fever. 21:09 All other systems are negative. Exam: 21:09 Constitutional: This is a well developed, well nourished patient who is awake, alert, jmm and in no acute distress. Head/Face: atraumatic. Eyes: EOMI, no conjunctival erythema appreciated ENT: Moist Mucus Membranes Neck: Trachea midline, Supple Chest/axilla: Normal chest wall appearance and motion. Cardiovascular: Regular rate and rhythm. No edema appreciated Respiratory: Normal respirations, no respiratory distress appreciated Abdomen/GI: Non distended, soft Back: Normal ROM Skin: General appearance color normal MS/ Extremity: Moves all extremities, no obvious deformities appreciated, no edema noted to the lower extremities Neuro: Awake and alert, normal gait Vital Signs: 20:54 BP 140 / 77; Pulse 70; Resp 16; Temp 98.3(O); Pulse Ox 100% on R/A; Weight 70.31 kg; aj Height 5 ft. 4 in. (162.56 cm); 23:19 BP 115 / 67; Pulse 73; Resp 18; Temp 98.4; Pulse Ox 100% on R/A; Pain 0/10; mg2 20:54 Body Mass Index 26.61 (70.31 kg, 162.56 cm) MDM: 21:09 Patient medically screened. [facility] 23:22 Data reviewed: vital signs, nurses notes. Counseling: I had a detailed discussion with [facility] the patient and/or guardian regarding: the historical points, exam findings, and any diagnostic results supporting the discharge/admit diagnosis, lab results, radiology results, the need for outpatient follow up, to return to the emergency department if symptoms worsen or persist or if there are any questions or concerns that arise at home. 23:22 ED course: Patient is alert and non toxic in appearance in the ED. Patient advised to [facility] follow up with Dr. Sepulveda for reevaluation. VS wnl in the ED. Patient was otherwise gien strict return precautions. Patient understood and agrees with the plan of care.. 09/04 22:39 Order name: Urine Dipstick--Ancillary (enter results); Complete Time: 23:14 09/04 22:40 Order name: Urine --Ancillary (enter results); Complete Time: 23:14 09/04 21:25 Order name: Chest Single View XRAY [facility] 09/04 21:25 Order name: Urine Dipstick-Ancillary (obtain specimen); Complete Time: 21:46 [facility] Administered Medications: 23:17 Drug: Rocephin (cefTRIAXone) 1 grams Route: IM; Site: right gluteus; mg2 23:38 Follow up: Response: No adverse reaction mg2 Disposition: 09/05 08:26 Co-signature as Attending Physician, Loco Corbett MD I agree with the assessment and [facility] plan of care. Disposition: 09/04/18 23:24 Discharged to Home. Impression: Urinary tract infection, site not specified. - Condition is Stable. - Discharge Instructions: Urinary Tract Infection, Adult. - Medication Reconciliation Form, Thank You Letter, Antibiotic Education, Prescription Opioid Use, Work release form form. - Follow up: Barbara Sepulveda MD; When: 1 - 2 days; Reason: Recheck today's complaints, Continuance of care, Re-evaluation by your physician. Signatures: Dispatcher [employer] Rosalva Quevedo, RN Loco Perkins MD MD cha Mickail, Joel, PA PA jmm Gardose, Michele, RN RN mg2 Tran, Leah lt1 Corrections: (The following items were deleted from the chart) 09/04 23:43 23:24 09/04/2018 23:24 Discharged to Home. Impression: Urinary tract infection, site lt1 not specified. Condition is Stable. Forms are Medication Reconciliation Form, Thank You Letter, Antibiotic Education, Prescription Opioid Use. Follow up: Barbara Sepulveda; When: 1 - 2 days; Reason: Recheck today's complaints, Continuance of care, Re-evaluation by your physician. mati
[2018-09-04] MEDS ORDERED: CEFTRIAXONE 1000 MG/VIAL ONE (23:28)
--- NOTE | 2018-09-05 08:30 | RAD REPORT ---
EXAM DESCRIPTION: RAD - Chest Single View - 09/04/2018 10:00 pm CLINICAL HISTORY: Fever, recent lithotripsy COMPARISON: August 29 TECHNIQUE: AP portable chest image was obtained 2159 hours . FINDINGS: Lungs are clear. Heart and vasculature are normal. No measurable pleural effusion and no p neumothorax. No acute bony abnormality seen. No acute aortic findings suspected. IMPRESSION: No acute cardiopulmonary process. No change from comparison.
== END 2018-09-04 23:43 | disposition home or self-care (01) ==
LOC: ER 20:46
DX: N39.0 Urinary tract infection, site not specified (principal); Z98.890 Other specified postprocedural states
CPT/HCPCS: 71045; 81003; 81025; 96372; 99283; J2001